=== PATIENT | female | born 1935 | race Caucasian/White ===

== ENCOUNTER → 2023-12-01 | Outpatient (CLI) | payer MEDICARE, BC ==
[~2023-12-01] MED LIST: Gadoterate 15 ML VIAL IV ONE
== END ==
LOC: COL.RAD 11:29
DX: I67.89 Other cerebrovascular disease (principal); J34.89 Other specified disorders of nose and nasal sinuses; F03.911 Unspecified dementia, unspecified severity, with agitation
CPT/HCPCS: A9575